=== PATIENT | male | born 1950 | race Caucasian/White ===

== ENCOUNTER 2019-11-01 13:41 | Inpatient (IN) ==
[2019-11-01] MEDS ORDERED: Naloxone 0.4 MG/ML INJ IVP PRN (18:49)
[2019-11-01] MEDS ORDERED: 0.9 % Sodium Chloride 1,000 ML IVC SCH (19:00)
[2019-11-01] MEDS ORDERED: *HR* Promethazine 25 MG/ML VIAL IVP PRN ×2 (19:46→21:57)
[2019-11-01] MEDS ORDERED: Magnesium Sulfate 1 GM/102 ML PIGGYBACK IVPB ONE (20:27)
[2019-11-01] MEDS ORDERED: Potassium Chloride 40 MEQ, Lidocaine 1% 2 ML in 0.9 % Sodium Chloride 500 ML IVPB ONE (21:00)
[2019-11-01] MEDS ORDERED: *HR* Meperidine 25 MG/ML SYRINGE IVP PRN (21:57)
[2019-11-01] MEDS ORDERED: *HR* HYDROmorphone PF 0.5 MG/0.5 ML SYRINGE IVP PRN (21:57)
[2019-11-01] MEDS ORDERED: Ondansetron 4 MG/2 ML VIAL IVP ONE (21:57)
[2019-11-01] MEDS ORDERED: *HR* OxyCODONE Immed Rel 5 MG TABLET PO PRN (21:57)
[2019-11-01] MEDS ORDERED: *HR* Heparin 5,000 UNIT/ML VIAL SQ SCH (22:00)
[2019-11-01] MEDS ORDERED: Lidocaine HCL 4 ML Topical Solution (Laryng-O-Jet Kit Sterile Pak) TP ONE (22:03)
[2019-11-01] MEDS ORDERED: *HR* FentaNYL (PF) 100 MCG/2 ML VIAL ONE (22:03)
[2019-11-01] MEDS ORDERED: Lidocaine -MPF 2% 2 ML VIAL ONE (22:03)
[2019-11-01] MEDS ORDERED: *HR* Rocuronium Bromide 50 MG/5 ML VIAL ONE (22:03)
[2019-11-01] MEDS ORDERED: *HR* Succinylcholine 200 MG/10 ML VIAL IVP ONE (22:03)
[2019-11-01] MEDS ORDERED: *HR* Propofol 200 MG/20 ML VIAL IVP ONE (22:03)
[2019-11-01] MEDS ORDERED: Acetaminophen IV 1,000 MG/100 ML INFUS..BTL ONE (22:14)
[2019-11-01] MEDS ORDERED: *HR* Vasopressin 20 UNIT/ML VIAL ONE (22:33)
[2019-11-01] MEDS ORDERED: Albumin Human 5% 25.0 GM/500 ML IV.SOLN ONE (22:33)
[2019-11-01] MEDS ORDERED: *HR* Etomidate 40 MG/20 ML VIAL IVP ONE (22:34)
[2019-11-01] MEDS ORDERED: *HR* PHENYLEPHRINE 1,000 MCG/10 ML SYRINGE IVP ONE (22:35)
[2019-11-01] MEDS ORDERED: CefOXitin 2,000 MG VIAL ONE (22:36)
[2019-11-01] MEDS ORDERED: Dexamethasone 4 MG/ML VIAL ONE (23:11)
[2019-11-01] MEDS ORDERED: Ondansetron 4 MG/2 ML VIAL ONE (23:11)
[2019-11-01] MEDS ORDERED: *HR* Phenylephrine 10 MG/ML VIAL ONE (23:45)
[2019-11-02] MEDS ORDERED: *HR* Rocuronium Bromide 50 MG/5 ML VIAL ONE (00:08)
[2019-11-02] MEDS ORDERED: *HR* HYDROmorphone PF 0.5 MG/0.5 ML SYRINGE IVP PRN (01:34)
[2019-11-02] MEDS ORDERED: *HR* OxyCODONE Immed Rel 5 MG TABLET PO PRN (01:34)
[2019-11-02] MEDS ORDERED: Magnesium Sulfate 1 GM/102 ML PIGGYBACK IVPB ONE (01:34)
[2019-11-02] MEDS ORDERED: *HR* Meperidine 25 MG/ML SYRINGE IVP PRN (01:34)
[2019-11-02] MEDS ORDERED: Ondansetron 4 MG/2 ML VIAL IVP ONE (01:34)
[2019-11-02] MEDS ORDERED: Naloxone 0.4 MG/ML INJ IVP PRN (01:34)
[2019-11-02] MEDS ORDERED: *HR* Promethazine 25 MG/ML VIAL IVP PRN ×2 (01:34)
[2019-11-02] MEDS ORDERED: Potassium Chloride 40 MEQ, Lidocaine 1% 2 ML in 0.9 % Sodium Chloride 500 ML IVPB ONE (02:00)
[2019-11-02] MEDS: 0.9 % Sodium Chloride 1,000 ML IVC SCH ×4 (02:11→23:09)
[2019-11-02 04:47] LABS: Basophils % 0.1 %; Immature Granulocytes % 0.2 % (0-4); Lymphocytes # 0.7 K/mcL (0.6-4.6); Lymphocytes % 7.7 %; Mean Corpuscular HGB Conc 30.6 g/dL (31.6-35.5); Mean Corpuscular Hemoglobin 30.3 pg (28.0-33.3); Mean Corpuscular Volume 99.2 fL (83.0-100.0); Mean Platelet Volume 10.2 fL (9.4-12.4); Monocytes # 1.2 K/mcL (0.0-1.3); Monocytes % 13.5 %; Neutrophils # 7.2 K/mcL (1.6-8.9); Platelet Count 300 K/mcL (140-400); Red Blood Count 3.63 M/mcL (4.19-5.50); Red Cell Distribution Width 14.6 % (11.5-14.5); Segmented Neutrophils % 78.5 %; White Blood Count 9.2 K/mcL (4.3-11.1)
[2019-11-02 04:54] LABS: INR 1.6
[2019-11-02 05:10] LABS: Alanine Aminotransferase 7 Units/L (7-52); Albumin 2.6 g/dL (3.5-5.7); Albumin/Globulin Ratio 1.2 (1.1-2.2); Alkaline Phosphatase 36 Units/L (34-104); Aspartate Amino Transferase 19 Units/L (13-39); BUN/Creatinine Ratio 30 (6-26); Bilirubin,Total 0.8 mg/dL (0.3-1.0); Blood Urea Nitrogen 21 mg/dL (8-23); Calcium 8.1 mg/dL (8.6-10.3); Carbon Dioxide 28 mEq/L (23-29); Chloride 106 mEq/L (98-107); Globulin 2.2 g/dL (2.4-3.5); Glucose 117 mg/dL (70-105); Magnesium 1.6 mg/dL (1.6-2.6); Osmolality,Calculated 300 (280-300); Phosphorous 4.1 mg/dL (2.7-4.5); Potassium 4.5 mEq/L (3.5-5.1); Sodium 143 mEq/L (136-145); Total Protein 4.8 g/dL (6.4-8.9); eGFR For African Americans > 60 (> 60); eGFR For Non-African Americans > 60 (> 60)
[2019-11-02] MEDS: *HR* Heparin 5,000 UNIT/ML VIAL SQ SCH ×3 (05:36→21:30)
[2019-11-02] MEDS: Ipratropium/Albuterol Neb 3 ML IH PRN ×2 (07:39→20:00)
[2019-11-02] MEDS: Piperacillin/Tazobactam 3.375 GM in 0.9 % Sodium Chloride Mini Bag 100 ML IVPB SCH ×3 (07:53→23:09)
[2019-11-02] MEDS ORDERED: Piperacillin/Tazobactam 3.375 GM in 0.9 % Sodium Chloride Mini Bag 100 ML IVPB SCH (08:00)
[2019-11-02] MEDS ORDERED: *HR* LORazepam 2 MG/ML VIAL IVP PRN (09:44)
[2019-11-02] MEDS: *HR* Metoprolol 5 MG/5 ML VIAL IVP PRN (10:22)
[2019-11-02 11:14] LABS: ABG Base Excess 2 mEq/L (-2 to 3); ABG HCO3 29 mEq/L (21-27); ABG Oxygen Saturation 99 % (95-98); ABG PCO2 52 mmHg (35-45); ABG PH 7.35 pH Units (7.32-7.45); ABG PO2 164 mmHg (85-104); ABG TCO2 30 mEq/L (20-26)
[2019-11-02] MEDS: *HR* LORazepam 2 MG/ML VIAL IVP PRN (14:10)
[2019-11-02 21:30] LABS: ABG Base Excess 3 mEq/L (-2 to 3); ABG HCO3 29 mEq/L (21-27); ABG Oxygen Saturation 98 % (95-98); ABG PCO2 50 mmHg (35-45); ABG PH 7.37 pH Units (7.32-7.45); ABG PO2 107 mmHg (85-104); ABG TCO2 30 mEq/L (20-26)
[2019-11-03] MEDS: Ipratropium/Albuterol Neb 3 ML IH PRN ×2 (03:51→09:53)
[2019-11-03] MEDS: *HR* LORazepam 2 MG/ML VIAL IVP PRN ×4 (04:44→21:52)
[2019-11-03] MEDS: *HR* Heparin 5,000 UNIT/ML VIAL SQ SCH ×3 (05:39→20:06)
[2019-11-03 05:41] LABS: Mean Platelet Volume 10.7 fL (9.4-12.4); Red Cell Distribution Width 14.9 % (11.5-14.5)
[2019-11-03 05:43] LABS: Basophils % 0.1 %; Hematocrit 30.5 % (37.5-50.1); Hemoglobin 9.2 g/dL (12.9-16.9); Immature Granulocytes % 0.3 % (0-4); Lymphocytes # 1.1 K/mcL (0.6-4.6); Mean Corpuscular HGB Conc 30.2 g/dL (31.6-35.5); Mean Corpuscular Hemoglobin 31.3 pg (28.0-33.3); Mean Corpuscular Volume 103.7 fL (83.0-100.0); Monocytes # 1.7 K/mcL (0.0-1.3); Monocytes % 14.9 %; Neutrophils # 8.3 K/mcL (1.6-8.9); Platelet Count 216 K/mcL (140-400); Red Blood Count 2.94 M/mcL (4.19-5.50); Segmented Neutrophils % 74.7 %; White Blood Count 11.1 K/mcL (4.3-11.1)
[2019-11-03 05:47] LABS: VBG HCO3 31 mEq/L (21-27); VBG PCO2 52 mmHg (41-51); VBG PH 7.38 pH Units (7.32-7.42); VBG PO2 179 mmHg (25-50)
[2019-11-03 06:08] LABS: Platelet Estimate Normal (Normal)
[2019-11-03] MEDS ORDERED: 0.9 % Sodium Chloride 1,000 ML IVC ONE (06:19)
[2019-11-03 07:01] LABS: BUN/Creatinine Ratio 31 (6-26); Blood Urea Nitrogen 25 mg/dL (8-23); Calcium 8.2 mg/dL (8.6-10.3); Carbon Dioxide 25 mEq/L (23-29); Chloride 110 mEq/L (98-107); Glucose 133 mg/dL (70-105); Magnesium 1.6 mg/dL (1.6-2.6); Osmolality,Calculated 304 (280-300); Phosphorous 2.9 mg/dL (2.7-4.5); Potassium 4.3 mEq/L (3.5-5.1); Sodium 144 mEq/L (136-145); eGFR For African Americans > 60 (> 60); eGFR For Non-African Americans > 60 (> 60)
[2019-11-03] MEDS ORDERED: Perflutren Lipid Microsphere 1.3 ML in 0.9 % Sodium Chloride 8.7 ML IVP PRN (07:52)
[2019-11-03] MEDS: Piperacillin/Tazobactam 3.375 GM in 0.9 % Sodium Chloride Mini Bag 100 ML IVPB SCH ×3 (08:24→23:23)
[2019-11-03] MEDS ORDERED: Furosemide 40 MG/4 ML VIAL IVP ONE (09:08)
[2019-11-03] MEDS ORDERED: Furosemide 20 MG/2 ML VIAL IVP STA (09:16)
[2019-11-03] MEDS ORDERED: Isovue-370 500 ML BOTTLE IVP ONE (09:25)
[2019-11-03] MEDS ORDERED: Valproic Acid INJ 250 MG in 0.9 % Sodium Chloride 100 ML IVPB SCH (09:31)
[2019-11-03 09:49] LABS: ABG Base Excess 7 mEq/L (-2 to 3); ABG HCO3 34 mEq/L (21-27); ABG Oxygen Saturation 93 % (95-98); ABG PCO2 58 mmHg (35-45); ABG PH 7.38 pH Units (7.32-7.45); ABG PO2 70 mmHg (85-104); ABG TCO2 36 mEq/L (20-26)
[2019-11-03] MEDS ORDERED: Cyanocobalamin (B-12) 1,000 MCG/ML VIAL IM ONE (11:56)
[2019-11-03] MEDS: Valproic Acid INJ 500 MG in 0.9 % Sodium Chloride 100 ML IVPB SCH ×3 (13:01→20:02)
[2019-11-03] MEDS: Folic Acid 1 MG in 0.9 % Sodium Chloride 50 ML IVPB SCH (14:03)
[2019-11-03] MEDS: Thiamine (B-1) 500 MG in 0.9 % Sodium Chloride 50 ML IVPB SCH ×3 (14:03→21:58)
[2019-11-03] MEDS: Ipratropium/Albuterol Neb 3 ML IH SCH ×4 (14:27→23:48)
[2019-11-03] MEDS: Budesonide/Formoterol 160/4.5 1 PUFF INH IH SCH ×2 (14:28→20:24)
[2019-11-03] MEDS ORDERED: Furosemide 20 MG/2 ML VIAL IVP ONE (17:31)
[2019-11-03] MEDS: Furosemide 40 MG/4 ML VIAL IVP SCH (20:02)
[2019-11-03] MEDS: *HR* Metoprolol 5 MG/5 ML VIAL IVP PRN (20:09)
[2019-11-04] MEDS: *HR* LORazepam 2 MG/ML VIAL IVP PRN ×2 (03:49→11:31)
[2019-11-04] MEDS: *HR* Heparin 5,000 UNIT/ML VIAL SQ SCH ×3 (03:50→20:42)
[2019-11-04] MEDS: Ipratropium/Albuterol Neb 3 ML IH SCH ×5 (04:03→20:01)
[2019-11-04] MEDS: Valproic Acid INJ 500 MG in 0.9 % Sodium Chloride 100 ML IVPB SCH ×2 (06:01→15:01)
[2019-11-04 06:38] LABS: Hematocrit 33.9 % (37.5-50.1); Hemoglobin 9.9 g/dL (12.9-16.9); Mean Corpuscular Hemoglobin 29.9 pg (28.0-33.3); Mean Corpuscular Volume 102.4 fL (83.0-100.0); Red Blood Count 3.31 M/mcL (4.19-5.50)
[2019-11-04 06:39] LABS: Basophils % 0.1 %; Immature Granulocytes % 0.3 % (0-4); Lymphocytes # 1.3 K/mcL (0.6-4.6); Lymphocytes % 14.5 %; Mean Corpuscular HGB Conc 29.2 g/dL (31.6-35.5); Mean Platelet Volume 11.5 fL (9.4-12.4); Monocytes # 1.1 K/mcL (0.0-1.3); Monocytes % 12.5 %; Neutrophils # 6.5 K/mcL (1.6-8.9); Nucleated Red Blood Cells 0.2 /100 WBC (0); Platelet Count 244 K/mcL (140-400); Red Cell Distribution Width 15.1 % (11.5-14.5); Segmented Neutrophils % 72.6 %
[2019-11-04 06:45] LABS: BUN/Creatinine Ratio 28 (6-26); Blood Urea Nitrogen 25 mg/dL (8-23); Calcium 9.2 mg/dL (8.6-10.3); Carbon Dioxide 31 mEq/L (23-29); Chloride 108 mEq/L (98-107); Glucose 105 mg/dL (70-105); Magnesium 1.6 mg/dL (1.6-2.6); Osmolality,Calculated 307 (280-300); Phosphorous 2.9 mg/dL (2.7-4.5); Potassium 3.9 mEq/L (3.5-5.1); Sodium 146 mEq/L (136-145); eGFR For African Americans > 60 (> 60); eGFR For Non-African Americans > 60 (> 60)
[2019-11-04 07:10] LABS: Folate 10.9 ng/mL (3.0-16.0); Vitamin B12 > 1500 pg/mL (250-1100)
[2019-11-04] MEDS: Furosemide 40 MG/4 ML VIAL IVP SCH ×2 (09:30→20:42)
[2019-11-04] MEDS: Folic Acid 1 MG in 0.9 % Sodium Chloride 50 ML IVPB SCH (09:30)
[2019-11-04] MEDS: Piperacillin/Tazobactam 3.375 GM in 0.9 % Sodium Chloride Mini Bag 100 ML IVPB SCH ×3 (11:08→23:28)
[2019-11-04] MEDS: Budesonide/Formoterol 160/4.5 1 PUFF INH IH SCH ×2 (11:26→20:01)
[2019-11-04] MEDS: Levothyroxine Sodium 100 MCG VIAL IVP SCH (12:26)
[2019-11-04] MEDS: Hydrocortisone Sodium Succ 100 MG/2 ML VIAL IVP SCH ×3 (12:26→23:30)
[2019-11-04] MEDS ORDERED: Morphine Sulfate 2 MG/ML SYRINGE IVP PRN (18:00)
[2019-11-05] MEDS: Ipratropium/Albuterol Neb 3 ML IH SCH ×7 (00:14→23:13)
[2019-11-05] MEDS: Valproic Acid INJ 500 MG in 0.9 % Sodium Chloride 100 ML IVPB SCH ×4 (00:17→23:23)
[2019-11-05 03:42] LABS: Basophils % 0.2 %; Hematocrit 29.1 % (37.5-50.1); Hemoglobin 8.8 g/dL (12.9-16.9); Immature Granulocytes % 0.5 % (0-4); Lymphocytes # 1.3 K/mcL (0.6-4.6); Lymphocytes % 13.1 %; Mean Corpuscular HGB Conc 30.2 g/dL (31.6-35.5); Mean Corpuscular Volume 99.3 fL (83.0-100.0); Mean Platelet Volume 10.2 fL (9.4-12.4); Monocytes # 0.7 K/mcL (0.0-1.3); Monocytes % 6.7 %; Nucleated Red Blood Cells 0.4 /100 WBC (0); Platelet Count 278 K/mcL (140-400); Red Blood Count 2.93 M/mcL (4.19-5.50); Red Cell Distribution Width 15.3 % (11.5-14.5); Segmented Neutrophils % 79.5 %
[2019-11-05 04:02] LABS: BUN/Creatinine Ratio 33 (6-26); Blood Urea Nitrogen 31 mg/dL (8-23); Carbon Dioxide 36 mEq/L (23-29); Chloride 108 mEq/L (98-107); Glucose 125 mg/dL (70-105); Magnesium 1.5 mg/dL (1.6-2.6); Osmolality,Calculated 316 (280-300); Phosphorous 3.8 mg/dL (2.7-4.5); Potassium 3.6 mEq/L (3.5-5.1); Sodium 149 mEq/L (136-145); eGFR For African Americans > 60 (> 60); eGFR For Non-African Americans > 60 (> 60)
[2019-11-05] MEDS: *HR* Heparin 5,000 UNIT/ML VIAL SQ SCH ×3 (05:09→21:22)
[2019-11-05] MEDS: Hydrocortisone Sodium Succ 100 MG/2 ML VIAL IVP SCH ×3 (06:59→23:23)
[2019-11-05] MEDS: Piperacillin/Tazobactam 3.375 GM in 0.9 % Sodium Chloride Mini Bag 100 ML IVPB SCH ×3 (06:59→23:24)
[2019-11-05] MEDS: Levothyroxine Sodium 100 MCG VIAL IVP SCH (07:42)
[2019-11-05] MEDS: Folic Acid 1 MG, Thiamine (B-1) 100 MG in 0.9 % Sodium Chloride 100 ML IVPB SCH (07:42)
[2019-11-05] MEDS: *HR* LORazepam 2 MG/ML VIAL IVP PRN (07:42)
[2019-11-05] MEDS: Budesonide/Formoterol 160/4.5 1 PUFF INH IH SCH ×2 (08:16→20:06)
[2019-11-05] MEDS: D5% in Water 1,000 ML IVC SCH (08:29)
[2019-11-05] MEDS ORDERED: Valproic Acid INJ 1,000 MG in 0.9 % Sodium Chloride 100 ML IVPB ONE (12:36)
[2019-11-06 02:23] LABS: Basophils % 0.1 %; Hematocrit 27.3 % (37.5-50.1); Hemoglobin 8.4 g/dL (12.9-16.9); Lymphocytes # 1.2 K/mcL (0.6-4.6); Lymphocytes % 11.3 %; Mean Corpuscular HGB Conc 30.8 g/dL (31.6-35.5); Mean Corpuscular Hemoglobin 29.9 pg (28.0-33.3); Mean Corpuscular Volume 97.2 fL (83.0-100.0); Mean Platelet Volume 10.2 fL (9.4-12.4); Monocytes # 0.6 K/mcL (0.0-1.3); Monocytes % 5.8 %; Neutrophils # 8.5 K/mcL (1.6-8.9); Platelet Count 280 K/mcL (140-400); Red Blood Count 2.81 M/mcL (4.19-5.50); Red Cell Distribution Width 15.6 % (11.5-14.5); Segmented Neutrophils % 81.8 %; White Blood Count 10.4 K/mcL (4.3-11.1)
[2019-11-06 02:35] LABS: BUN/Creatinine Ratio 40 (6-26); Blood Urea Nitrogen 31 mg/dL (8-23); Calcium 9.2 mg/dL (8.6-10.3); Carbon Dioxide 35 mEq/L (23-29); Chloride 109 mEq/L (98-107); Glucose 120 mg/dL (70-105); Magnesium 1.9 mg/dL (1.6-2.6); Osmolality,Calculated 320 (280-300); Phosphorous 2.9 mg/dL (2.7-4.5); Potassium 3.4 mEq/L (3.5-5.1); Sodium 151 mEq/L (136-145); eGFR For African Americans > 60 (> 60); eGFR For Non-African Americans > 60 (> 60)
[2019-11-06] MEDS: Ipratropium/Albuterol Neb 3 ML IH SCH ×6 (04:24→23:32)
[2019-11-06] MEDS: D5% in Water 1,000 ML IVC SCH (04:38)
[2019-11-06] MEDS: *HR* Heparin 5,000 UNIT/ML VIAL SQ SCH ×3 (05:09→21:12)
[2019-11-06] MEDS: Piperacillin/Tazobactam 3.375 GM in 0.9 % Sodium Chloride Mini Bag 100 ML IVPB SCH ×3 (08:23→23:28)
[2019-11-06] MEDS: *HR* Metoprolol 5 MG/5 ML VIAL IVP PRN (08:23)
[2019-11-06] MEDS: Levothyroxine Sodium 100 MCG VIAL IVP SCH (08:23)
[2019-11-06] MEDS: Hydrocortisone Sodium Succ 100 MG/2 ML VIAL IVP SCH ×3 (08:23→23:27)
[2019-11-06] MEDS: *HR* LORazepam 2 MG/ML VIAL IVP PRN (08:24)
[2019-11-06] MEDS: Folic Acid 1 MG, Thiamine (B-1) 100 MG in 0.9 % Sodium Chloride 100 ML IVPB SCH (08:25)
[2019-11-06] MEDS: Valproic Acid INJ 500 MG in 0.9 % Sodium Chloride 100 ML IVPB SCH ×3 (09:35→23:26)
[2019-11-06] MEDS ORDERED: *HR* LORazepam 2 MG/ML VIAL IVP ONE (17:46)
[2019-11-06 20:06] LABS: Bilirubin,Urine Negative (Negative); Blood,Urine Moderate (Negative); Clarity,Urine Clear (Clear); Color,Urine Yellow (Yellow); Glucose,Urine (UA) Normal (Normal); Hyaline Casts,Urine Few per lpf (None Seen); Ketones,Urine Trace mg/dL (Negative); Leukocyte Esterase,Urine Negative (Negative); Mucus,Urine Few per lpf (None-Few); Nitrite,Urine Negative (Negative); Protein,Urine 50 mg/dL (Neg-Trace); RBC,Urine 50-100 per hpf (0-3); Specific Gravity,Urine > 1.030 (1.010-1.025); Urobilinogen,Urine Normal (Normal); WBC,Urine 0-3 per hpf (0-3)
[2019-11-06 22:45] LABS: ABG Base Excess 10 mEq/L (-2 to 3); ABG HCO3 37 mEq/L (21-27); ABG Oxygen Saturation 58 % (95-98); ABG PCO2 66 mmHg (35-45); ABG PH 7.36 pH Units (7.32-7.45); ABG PO2 33 mmHg (85-104); ABG TCO2 39 mEq/L (20-26)
[2019-11-07] MEDS: D5% in Water 1,000 ML IVC SCH ×2 (00:11→20:03)
[2019-11-07 01:59] LABS: Basophils % 0.2 %; Hematocrit 28.8 % (37.5-50.1); Immature Granulocytes % 1.7 % (0-4); Lymphocytes # 1.7 K/mcL (0.6-4.6); Lymphocytes % 13.8 %; Mean Corpuscular HGB Conc 31.3 g/dL (31.6-35.5); Mean Platelet Volume 11.1 fL (9.4-12.4); Monocytes # 0.5 K/mcL (0.0-1.3); Monocytes % 3.9 %; Neutrophils # 9.8 K/mcL (1.6-8.9); Nucleated Red Blood Cells 0.9 /100 WBC (0); Platelet Count 248 K/mcL (140-400); Red Cell Distribution Width 15.4 % (11.5-14.5); Segmented Neutrophils % 80.4 %; White Blood Count 12.2 K/mcL (4.3-11.1)
[2019-11-07 02:13] LABS: BUN/Creatinine Ratio 45 (6-26); Blood Urea Nitrogen 35 mg/dL (8-23); Calcium 9.2 mg/dL (8.6-10.3); Carbon Dioxide 34 mEq/L (23-29); Chloride 110 mEq/L (98-107); Glucose 129 mg/dL (70-105); Magnesium 2.1 mg/dL (1.6-2.6); Osmolality,Calculated 318 (280-300); Phosphorous 3.8 mg/dL (2.7-4.5); Potassium 4.8 mEq/L (3.5-5.1); Sodium 149 mEq/L (136-145); eGFR For African Americans > 60 (> 60); eGFR For Non-African Americans > 60 (> 60)
[2019-11-07 02:16] LABS: VBG HCO3 33 mEq/L (21-27); VBG PCO2 29 mmHg (41-51); VBG PH 7.67 pH Units (7.32-7.42); VBG PO2 204 mmHg (25-50)
[2019-11-07] MEDS: Ipratropium/Albuterol Neb 3 ML IH SCH ×6 (03:47→23:42)
[2019-11-07 04:06] LABS: VBG HCO3 39 mEq/L (21-27); VBG PCO2 73 mmHg (41-51); VBG PH 7.34 pH Units (7.32-7.42); VBG PO2 89 mmHg (25-50)
[2019-11-07] MEDS: *HR* Heparin 5,000 UNIT/ML VIAL SQ SCH ×3 (05:45→21:04)
[2019-11-07 06:07] LABS: VBG HCO3 38 mEq/L (21-27); VBG PCO2 64 mmHg (41-51); VBG PH 7.37 pH Units (7.32-7.42); VBG PO2 226 mmHg (25-50)
[2019-11-07] MEDS: Piperacillin/Tazobactam 3.375 GM in 0.9 % Sodium Chloride Mini Bag 100 ML IVPB SCH ×3 (08:17→23:13)
[2019-11-07] MEDS: Levothyroxine Sodium 100 MCG VIAL IVP SCH (08:17)
[2019-11-07] MEDS: Hydrocortisone Sodium Succ 100 MG/2 ML VIAL IVP SCH (08:17)
[2019-11-07] MEDS: Folic Acid 1 MG, Thiamine (B-1) 100 MG in 0.9 % Sodium Chloride 100 ML IVPB SCH (08:59)
[2019-11-07] MEDS: Valproic Acid INJ 500 MG in 0.9 % Sodium Chloride 100 ML IVPB SCH (09:58)
[2019-11-07 11:15] LABS: Valproate 92 mcg/mL (50-100)
[2019-11-07] MEDS: Morphine Sulfate 2 MG/ML SYRINGE IVP PRN (15:22)
[2019-11-07] MEDS: MethylPREDNISolone 40 MG/ML VIAL IVP SCH (17:13)
[2019-11-07] MEDS ORDERED: levETIRAcetam 250 MG TABLET PO SCH (18:00)
[2019-11-08] MEDS: Morphine Sulfate 2 MG/ML SYRINGE IVP PRN (01:14)
[2019-11-08 01:33] LABS: Basophils % 0.2 %; Hemoglobin 8.5 g/dL (12.9-16.9); Immature Granulocytes % 1.1 % (0-4); Lymphocytes # 1.1 K/mcL (0.6-4.6); Lymphocytes % 10.8 %; Mean Corpuscular HGB Conc 30.4 g/dL (31.6-35.5); Mean Corpuscular Hemoglobin 30.8 pg (28.0-33.3); Mean Corpuscular Volume 101.4 fL (83.0-100.0); Mean Platelet Volume 10.3 fL (9.4-12.4); Monocytes # 0.4 K/mcL (0.0-1.3); Monocytes % 3.5 %; Neutrophils # 8.5 K/mcL (1.6-8.9); Nucleated Red Blood Cells 0.6 /100 WBC (0); Platelet Count 255 K/mcL (140-400); Red Blood Count 2.76 M/mcL (4.19-5.50); Red Cell Distribution Width 14.9 % (11.5-14.5); Segmented Neutrophils % 84.4 %; White Blood Count 10.1 K/mcL (4.3-11.1)
[2019-11-08 01:52] LABS: BUN/Creatinine Ratio 45 (6-26); Blood Urea Nitrogen 33 mg/dL (8-23); Calcium 8.8 mg/dL (8.6-10.3); Carbon Dioxide 38 mEq/L (23-29); Chloride 109 mEq/L (98-107); Glucose 122 mg/dL (70-105); Magnesium 2.2 mg/dL (1.6-2.6); Osmolality,Calculated 319 (280-300); Phosphorous 2.4 mg/dL (2.7-4.5); Potassium 4.2 mEq/L (3.5-5.1); Sodium 150 mEq/L (136-145); eGFR For African Americans > 60 (> 60); eGFR For Non-African Americans > 60 (> 60)
[2019-11-08] MEDS: Ipratropium/Albuterol Neb 3 ML IH SCH ×5 (04:38→20:19)
[2019-11-08] MEDS: MethylPREDNISolone 40 MG/ML VIAL IVP SCH (05:36)
[2019-11-08] MEDS: *HR* Heparin 5,000 UNIT/ML VIAL SQ SCH ×3 (05:36→20:25)
[2019-11-08] MEDS ORDERED: Morphine Sulfate 2 MG/ML SYRINGE IVP PRN ×2 (06:46→06:48)
[2019-11-08] MEDS: Piperacillin/Tazobactam 3.375 GM in 0.9 % Sodium Chloride Mini Bag 100 ML IVPB SCH (07:48)
[2019-11-08] MEDS: Levothyroxine Sodium 100 MCG VIAL IVP SCH (07:49)
[2019-11-08] MEDS: Folic Acid 1 MG, Thiamine (B-1) 100 MG in 0.9 % Sodium Chloride 100 ML IVPB SCH (08:32)
[2019-11-08] MEDS ORDERED: D5% in 0.45% NACL 1,000 ML IVC SCH (13:45)
[2019-11-08] MEDS ORDERED: Ketorolac 30 MG/ML VIAL IVP PRN (14:25)
[2019-11-08 17:22] LABS: Valproate Free 45 ug/mL (7-23); Valproate Total 90 ug/mL (50-125)
[2019-11-08 17:48] LABS: BUN/Creatinine Ratio 46 (6-26); Blood Urea Nitrogen 32 mg/dL (8-23); Calcium 8.8 mg/dL (8.6-10.3); Carbon Dioxide 39 mEq/L (23-29); Chloride 111 mEq/L (98-107); Glucose 127 mg/dL (70-105); Osmolality,Calculated 320 (280-300); Potassium 4.2 mEq/L (3.5-5.1); Sodium 151 mEq/L (136-145); eGFR For African Americans > 60 (> 60); eGFR For Non-African Americans > 60 (> 60)
[2019-11-08] MEDS ORDERED: Potassium Phosphate 44 MEQ in 0.9 % Sodium Chloride 250 ML IVPB ONE (17:51)
[2019-11-08] MEDS ORDERED: D5% in Water 500 ML IVC SCH (18:00)
[2019-11-08] MEDS ORDERED: Potassium Phosphate 44 MEQ in D5% in Water 250 ML IVPB ONE (18:30)
[2019-11-09] MEDS: Ipratropium/Albuterol Neb 3 ML IH SCH ×7 (00:05→23:53)
[2019-11-09 03:50] LABS: Basophils % 0.2 %; Hematocrit 30.4 % (37.5-50.1); Hemoglobin 9.2 g/dL (12.9-16.9); Immature Granulocytes % 1.5 % (0-4); Lymphocytes # 1.7 K/mcL (0.6-4.6); Lymphocytes % 14.8 %; Mean Corpuscular HGB Conc 30.3 g/dL (31.6-35.5); Mean Corpuscular Hemoglobin 30.1 pg (28.0-33.3); Mean Corpuscular Volume 99.3 fL (83.0-100.0); Mean Platelet Volume 10.6 fL (9.4-12.4); Monocytes # 0.8 K/mcL (0.0-1.3); Neutrophils # 8.9 K/mcL (1.6-8.9); Nucleated Red Blood Cells 0.7 /100 WBC (0); Platelet Count 268 K/mcL (140-400); Red Blood Count 3.06 M/mcL (4.19-5.50); Segmented Neutrophils % 76.5 %; White Blood Count 11.7 K/mcL (4.3-11.1)
[2019-11-09 04:08] LABS: BUN/Creatinine Ratio 46 (6-26); Blood Urea Nitrogen 32 mg/dL (8-23); Calcium 8.9 mg/dL (8.6-10.3); Carbon Dioxide 36 mEq/L (23-29); Chloride 109 mEq/L (98-107); Glucose 112 mg/dL (70-105); Magnesium 2.2 mg/dL (1.6-2.6); Osmolality,Calculated 316 (280-300); Phosphorous 3.1 mg/dL (2.7-4.5); Potassium 3.9 mEq/L (3.5-5.1); Sodium 149 mEq/L (136-145); eGFR For African Americans > 60 (> 60); eGFR For Non-African Americans > 60 (> 60)
[2019-11-09] MEDS: *HR* Heparin 5,000 UNIT/ML VIAL SQ SCH ×3 (04:59→20:31)
[2019-11-09] MEDS: WATER IVPB SCH ×3 (04:59→17:20)
[2019-11-09] MEDS: D5 IVPB SCH ×3 (04:59→17:20)
[2019-11-09] MEDS: LEVETIRACETAM IVPB SCH ×2 (04:59→17:20)
[2019-11-09] MEDS: Levothyroxine Sodium 100 MCG VIAL IVP SCH (07:46)
[2019-11-09] MEDS: FOLIC ACID IVPB SCH (07:47)
[2019-11-09] MEDS: THIAMINE IVPB SCH (07:47)
[2019-11-09] MEDS ORDERED: MethylPREDNISolone 40 MG/ML VIAL IVP SCH (09:00)
[2019-11-09 09:33] LABS: Valproate % Free 50 % (5-18)
[2019-11-09] MEDS ORDERED: D5% in Water 1,000 ML IVC SCH (12:30)
[2019-11-10 01:09] LABS: BUN/Creatinine Ratio 44 (6-26); Blood Urea Nitrogen 30 mg/dL (8-23); Calcium 8.8 mg/dL (8.6-10.3); Carbon Dioxide 35 mEq/L (23-29); Chloride 105 mEq/L (98-107); Glucose 137 mg/dL (70-105); Osmolality,Calculated 310 (280-300); Potassium 4.1 mEq/L (3.5-5.1); Sodium 146 mEq/L (136-145); eGFR For African Americans > 60 (> 60); eGFR For Non-African Americans > 60 (> 60)
[2019-11-10] MEDS: Ipratropium/Albuterol Neb 3 ML IH SCH ×6 (03:42→23:46)
[2019-11-10] MEDS: *HR* Heparin 5,000 UNIT/ML VIAL SQ SCH ×3 (05:34→22:31)
[2019-11-10] MEDS: D5 IVPB SCH ×3 (05:48→17:46)
[2019-11-10] MEDS: LEVETIRACETAM IVPB SCH ×2 (05:48→17:46)
[2019-11-10] MEDS: WATER IVPB SCH ×3 (05:48→17:46)
[2019-11-10 07:15] LABS: BUN/Creatinine Ratio 42 (6-26); Blood Urea Nitrogen 28 mg/dL (8-23); Calcium 8.4 mg/dL (8.6-10.3); Carbon Dioxide 36 mEq/L (23-29); Chloride 107 mEq/L (98-107); Glucose 110 mg/dL (70-105); Osmolality,Calculated 308 (280-300); Potassium 3.7 mEq/L (3.5-5.1); Sodium 146 mEq/L (136-145); eGFR For African Americans > 60 (> 60); eGFR For Non-African Americans > 60 (> 60)
[2019-11-10] MEDS: FOLIC ACID IVPB SCH (08:09)
[2019-11-10] MEDS: THIAMINE IVPB SCH (08:09)
[2019-11-10] MEDS: Levothyroxine Sodium 100 MCG VIAL IVP SCH (08:09)
[2019-11-10] MEDS: *HR* OxyCODONE Immed Rel 5 MG TABLET PO PRN ×2 (12:32→22:31)
[2019-11-10] MEDS ORDERED: D5% in Water 1,000 ML IVC SCH (13:00)
[2019-11-11] MEDS ORDERED: Ondansetron ODT 4 MG TAB.RAPDIS SL ONE (01:01)
[2019-11-11] MEDS ORDERED: 0.45 % Sodium Chloride 250 ML IVC SCH (02:00)
[2019-11-11 02:05] LABS: Hematocrit 33.5 % (37.5-50.1); Hemoglobin 10.1 g/dL (12.9-16.9)
[2019-11-11] MEDS: Pantoprazole 40 MG VIAL IVP SCH (03:06)
[2019-11-11] MEDS: Ipratropium/Albuterol Neb 3 ML IH SCH ×5 (03:22→20:28)
[2019-11-11 04:58] LABS: Hemoglobin 9.7 g/dL (12.9-16.9)
[2019-11-11 05:17] LABS: BUN/Creatinine Ratio 34 (6-26); Blood Urea Nitrogen 24 mg/dL (8-23); Calcium 8.3 mg/dL (8.6-10.3); Carbon Dioxide 37 mEq/L (23-29); Chloride 104 mEq/L (98-107); Glucose 124 mg/dL (70-105); Osmolality,Calculated 299 (280-300); Potassium 3.5 mEq/L (3.5-5.1); Sodium 142 mEq/L (136-145); eGFR For African Americans > 60 (> 60); eGFR For Non-African Americans > 60 (> 60)
[2019-11-11] MEDS: WATER IVPB SCH ×3 (05:40→20:08)
[2019-11-11] MEDS: D5 IVPB SCH ×3 (05:40→20:08)
[2019-11-11] MEDS: LEVETIRACETAM IVPB SCH ×2 (05:40→20:08)
[2019-11-11] MEDS: *HR* Heparin 5,000 UNIT/ML VIAL SQ SCH ×3 (05:40→23:49)
[2019-11-11] MEDS: Levothyroxine Sodium 100 MCG VIAL IVP SCH (08:19)
[2019-11-11] MEDS: FOLIC ACID IVPB SCH (08:21)
[2019-11-11] MEDS: THIAMINE IVPB SCH (08:21)
[2019-11-11 09:09] LABS: ABG Base Excess 10 mEq/L (-2 to 3); ABG HCO3 34 mEq/L (21-27); ABG Oxygen Saturation 93 % (95-98); ABG PCO2 45 mmHg (35-45); ABG PH 7.49 pH Units (7.32-7.45); ABG PO2 63 mmHg (85-104); ABG TCO2 36 mEq/L (20-26)
[2019-11-11] MEDS ORDERED: 0.9 % Sodium Chloride 1,000 ML IVC ONE (11:51)
[2019-11-11] MEDS ORDERED: 0.9 % Sodium Chloride 1,000 ML ONE (11:55)
[2019-11-11] MEDS ORDERED: Piperacillin/Tazobactam 3.375 GM in 0.9 % Sodium Chloride Mini Bag 100 ML IVPB SCH (12:00)
[2019-11-11] MEDS ORDERED: Vancomycin 2,000 MG/520 ML IV.SOLN IVPB ONE (12:23)
[2019-11-11 12:36] LABS: Basophils % 0.1 %; Eosinophils # 0.1 K/mcL (0.0-0.6); Eosinophils % 0.6 %; Hemoglobin 9.8 g/dL (12.9-16.9); Immature Granulocytes % 0.5 % (0-4); Lymphocytes % 10.3 %; Mean Corpuscular HGB Conc 30.6 g/dL (31.6-35.5); Mean Corpuscular Hemoglobin 30.1 pg (28.0-33.3); Mean Corpuscular Volume 98.2 fL (83.0-100.0); Monocytes # 0.8 K/mcL (0.0-1.3); Neutrophils # 16.3 K/mcL (1.6-8.9); Nucleated Red Blood Cells 0.2 /100 WBC (0); Platelet Count 245 K/mcL (140-400); Red Blood Count 3.26 M/mcL (4.19-5.50); Red Cell Distribution Width 15.4 % (11.5-14.5); Segmented Neutrophils % 84.5 %
[2019-11-11 12:42] LABS: White Blood Count 19.3 K/mcL (4.3-11.1)
[2019-11-11] MEDS ORDERED: 0.9 % Sodium Chloride 1,000 ML IV ONE (15:15)
[2019-11-11 15:47] LABS: Bacteria,Urine Few per hpf (None-Few); Bilirubin,Urine Negative (Negative); Blood,Urine Trace (Negative); Clarity,Urine Clear (Clear); Color,Urine Light-Orange (Yellow); Glucose,Urine (UA) Normal (Normal); Ketones,Urine Negative (Negative); Leukocyte Esterase,Urine Negative (Negative); Mucus,Urine Few per lpf (None-Few); Nitrite,Urine Negative (Negative); Protein,Urine Trace mg/dL (Neg-Trace); Specific Gravity,Urine 1.027 (1.010-1.025); Squamous Epithelial Cell,Urine Few per hpf (None-Few); Urobilinogen,Urine Normal (Normal); WBC,Urine 0-3 per hpf (0-3)
[2019-11-11] MEDS: Hydrocortisone Sodium Succ 100 MG/2 ML VIAL IVP SCH ×2 (17:10→23:50)
[2019-11-11] MEDS ORDERED: Ringers Solution, Lactated 1,000 ML IV SCH (18:45)
[2019-11-11] MEDS: Piperacillin/Tazobactam 3.375 GM in 0.9 % Sodium Chloride Mini Bag 100 ML IVPB SCH (23:50)
[2019-11-12] MEDS: Ipratropium/Albuterol Neb 3 ML IH SCH ×5 (00:16→15:14)
[2019-11-12] MEDS ORDERED: Vancomycin 2,000 MG/520 ML IV.SOLN IVPB ONE (02:00)
[2019-11-12] MEDS: LEVETIRACETAM IVPB SCH (05:54)
[2019-11-12] MEDS: WATER IVPB SCH ×2 (05:54→08:50)
[2019-11-12] MEDS: D5 IVPB SCH ×2 (05:54→08:50)
[2019-11-12] MEDS: Pantoprazole 40 MG VIAL IVP SCH (05:55)
[2019-11-12] MEDS: *HR* Heparin 5,000 UNIT/ML VIAL SQ SCH ×2 (05:56→14:26)
[2019-11-12 07:04] LABS: Hematocrit 28.6 % (37.5-50.1); Hemoglobin 8.8 g/dL (12.9-16.9); Mean Corpuscular HGB Conc 30.8 g/dL (31.6-35.5); Mean Corpuscular Hemoglobin 30.1 pg (28.0-33.3); Mean Corpuscular Volume 97.9 fL (83.0-100.0); Mean Platelet Volume 11.6 fL (9.4-12.4); Platelet Count 253 K/mcL (140-400); Red Blood Count 2.92 M/mcL (4.19-5.50); Red Cell Distribution Width 15.7 % (11.5-14.5); White Blood Count 21.5 K/mcL (4.3-11.1)
[2019-11-12 07:20] LABS: BUN/Creatinine Ratio 21 (6-26); Blood Urea Nitrogen 18 mg/dL (8-23); Calcium 7.9 mg/dL (8.6-10.3); Carbon Dioxide 32 mEq/L (23-29); Chloride 107 mEq/L (98-107); Glucose 150 mg/dL (70-105); Osmolality,Calculated 299 (280-300); Potassium 3.7 mEq/L (3.5-5.1); Sodium 142 mEq/L (136-145); eGFR For African Americans > 60 (> 60); eGFR For Non-African Americans > 60 (> 60)
[2019-11-12] MEDS: Hydrocortisone Sodium Succ 100 MG/2 ML VIAL IVP SCH ×2 (08:28→16:37)
[2019-11-12] MEDS: Levothyroxine Sodium 100 MCG VIAL IVP SCH (08:29)
[2019-11-12] MEDS: Piperacillin/Tazobactam 3.375 GM in 0.9 % Sodium Chloride Mini Bag 100 ML IVPB SCH ×2 (08:30→16:38)
[2019-11-12] MEDS: THIAMINE IVPB SCH (08:50)
[2019-11-12] MEDS: FOLIC ACID IVPB SCH (08:50)
[2019-11-12] MEDS: Metoclopramide 10 MG/2 ML VIAL IVP PRN ×2 (11:10→19:02)
[2019-11-12] MEDS ORDERED: Vancomycin 1,250 MG/262.5 ML IV.SOLN IVPB SCH (14:00)
[2019-11-12] MEDS ORDERED: Ondansetron 4 MG/2 ML VIAL IVP PRN (17:27)
[2019-11-12 18:45] VITALS: BP 136/86
[2019-11-12] MEDS ORDERED: Furosemide 40 MG/4 ML VIAL IVP STA (18:49)
[2019-11-12] MEDS ORDERED: Furosemide 40 MG/4 ML VIAL ONE (18:51)
[2019-11-12] MEDS ORDERED: Aminoglycoside Consult 1 EACH MC ONE (19:20)
== END 2019-11-12 19:21 | disposition expired | DRG 329 ==
LOC: 3ANU → OBSVTOIN 18:10 → SUATTDRO 18:10 → 2NNU 19:01 → 3ANU 11-10 15:13
PROVIDERS: ADMIT Internal Medicine; ATTEND Internal Medicine